=== PATIENT | female | born 1940 | race Caucasian/White ===

== ENCOUNTER 2019-11-03 14:42 | Inpatient (IN) | payer OTHER ==
[~2019-11-03] VITALS: Ht 160 cm; Wt 50.4 kg
[2019-11-03] MEDS ORDERED: SODIUM CHLORIDE 0.9% 1,000 ML IV ONE ×2 (14:58)
[2019-11-03 15:29] LABS: Basophils # (auto) 0 10 ^3/uL (0-0.2); Basophils % (auto) 0.3 % (0.0-2.0); Eosinophils # (auto) 0 10 ^3/uL (0-0.8); Eosinophils % (auto) 0.1 % (0.0-7.0); Hematocrit 34.9 % (36.0-46.0); Hemoglobin 11.1 g/dL (12.2-16.2); Lymphocytes # (auto) 0.6 10 ^3/uL (0.4-5.4); Lymphocytes % (auto) 5.3 % (10.0-50.0); Mean Corpuscular Hgb Conc. 31.8 g/dL (32.0-36.0); Mean Corpuscular Volume 94.5 fL (80.0-100.0); Monocytes # (auto) 0.6 10 ^3/uL (0-1.3); Monocytes % (auto) 5.2 % (0.0-12.0); Neutrophils # (auto) 10.2 10 ^3/uL (1.6-8.6); Neutrophils % (auto) 89.1 % (37.0-80.0); Nucleated Red Blood Cells % 0.1 %; Platelet Count (auto) 208 10^3/uL (140-450); Red Cell Distribution Width 15.8 % (11.8-14.3); White Blood Cell 11.4 10^3/uL (4.4-10.8)
[2019-11-03 15:43] LABS: Albumin 3.2 g/dL (3.4-5.0); Calcium 8.4 mg/dL (8.5-10.1)
[2019-11-03 15:47] LABS: BUN/Creatinine Ratio 21.2; Bilirubin, Total 0.5 mg/dL (0.2-1.0); Total Protein 6.1 g/dL (6.4-8.2)
[2019-11-03] MEDS ORDERED: FUROSEMIDE 20 MG/2 ML VIAL IV ONE (19:30)
[2019-11-03] MEDS ORDERED: MORPHINE SULF INJ 2 MG/ML SYRINGE 1ML IV PRN (19:30)
[2019-11-03] MEDS ORDERED: NITROGLYCERIN 0.4 MG SL TAB SL PRN ×2 (19:30→22:45)
[2019-11-03] MEDS ORDERED: MORPHINE SULF INJ 2 MG/ML SYRINGE 1ML IV ONE (20:15)
[2019-11-03] MEDS ORDERED: LACTATED RINGER'S 1,000 ML IV ONE (20:15)
[2019-11-03] MEDS ORDERED: ONDANSETRON HCL 4 MG/2 ML VIAL IV ONE (20:15)
[2019-11-03] MEDS: SODIUM CHLORIDE 0.9% 1,000 ML IV SCH (20:17)
--- NOTE | 2019-11-03 22:00 | NUR ---
Telemetry admit from ER MITESH SHEPPARD admitted to Telemetry unit after SBAR received. Patient oriented to RAYMOND PONCE RN primary RN, unit, room, bed, and unit policies regarding patient care and visiting hours. Patient is CADDO. Patient now on continuous telemetry monitoring, tele box # [id number] and telemetry reading on arrival to unit is SR 70-80S. Patient placed on bedside oxygen, weighed by bedscale and encouraged to call if they need something. All questions and concerns addressed, patient verbalized understanding. Note:
[2019-11-03 22:03] VITALS: BP 127/63
[2019-11-03] MEDS ORDERED: ONDANSETRON HCL 4 MG/2 ML VIAL IV PRN (22:45)
[2019-11-03] MEDS ORDERED: ENOXAPARIN SOD 100 MG/1 ML SYRINGE SC ONE (22:45)
[2019-11-03] MEDS ORDERED: LORazepam 0.5 MG TAB PO PRN (22:45)
[2019-11-03] MEDS ORDERED: ALUM & MAG HYDROX-SIMETH LIQ(MAALOX) 30 ML PO ONE (22:45)
[2019-11-03] MEDS: cefTRIAXone 1GM/50ML D5W 50 ML IV SCH (23:33)
[2019-11-04] VITALS (7 sets, daily range): BP systolic 100–120; BP diastolic 48–68
[2019-11-04] MEDS: AZITHROMYCIN 500MG/ 250ML 250 ML IV SCH ×2 (01:18→10:13)
[2019-11-04] MEDS ORDERED: OMEP20TA PO (01:28)
[2019-11-04] MEDS ORDERED: BENA10TA9 PO (01:28)
[2019-11-04] MEDS ORDERED: ATOR20TA50 PO (01:28)
[2019-11-04] MEDS ORDERED: DONETAB6 PO (01:28)
--- NOTE | 2019-11-04 02:30 | NUR ---
ELEVATED TROPONIN LEFT MESSAGE WITH CARDIO DR BACH REGARDING PATIENT ELEVATED TROPONIN 1.55 AWAITING CALL BACK
[2019-11-04] MEDS: FUROSEMIDE 20 MG/2 ML VIAL IV SCH ×2 (05:04→23:44)
--- NOTE | 2019-11-04 06:30 | NUR ---
UPDATED FAMILY DAUGHTER IN LAW ARMEN CALLED CONFIRMED [employer]. UPDATED HER ON PATIENT STATUS AND PLAN OF CARE.
--- NOTE | 2019-11-04 07:00 | NUR ---
UA SENT TO LAB
--- NOTE | 2019-11-04 08:00 | NUR ---
ASSESSMENT NOTE PT IS ALERT TO SELF, SITUATION, AND PLACE, CONFUSED ON TIMES, GENERALIS WEAKNESS NOTED, PT IS ABLE TO VERBALIS HER DEMANDS, AND SELF REPOSITION, INCONTINENT ON STOOL AND URINE, KEPT DRY AND CLEAN AT ALL TIMES, FALL RISK PRECAUTIONS, CALL LIGHT WITHIN REACH
[2019-11-04 08:09] LABS: Urine Bacteria NONE SEEN /hpf (None Seen); Urine Blood TRACE /uL (Negative); Urine Mucus FEW (None Seen); Urine WBC 179 /hpf (0 - 5)
[2019-11-04] MEDS: cefTRIAXone 1GM/50ML D5W 50 ML IV SCH (08:33)
[2019-11-04] MEDS: SODIUM CHLORIDE 0.9% 1,000 ML IV SCH ×3 (08:50→23:06)
[2019-11-04] MEDS ORDERED: LISINOPRIL 20 MG TAB PO SCH (10:00)
[2019-11-04] MEDS ORDERED: ASPirin 81 mg TAB PO SCH (10:00)
[2019-11-04] MEDS ORDERED: CLOPIDOGREL BISULFATE 75 MG TAB PO SCH (10:00)
[2019-11-04] MEDS: FAMOTIDINE (10MG/ML) 2ML VL IV SCH ×2 (10:12→23:15)
[2019-11-04] MEDS: DOCUSATE SOD 100 MG CAP PO SCH (10:13)
[2019-11-04] MEDS: METOPROLOL TARTRATE 25 MG TAB PO SCH ×2 (10:14→22:00)
[2019-11-04 10:28] LABS: Hematocrit 34.4 % (36.0-46.0); Hemoglobin 11.1 g/dL (12.2-16.2); Mean Corpuscular Hemoglobin 30.5 pg (28.0-32.0); Mean Corpuscular Hgb Conc. 32.4 g/dL (32.0-36.0); Platelet Count (auto) 171 10^3/uL (140-450); Red Blood Cells 3.66 10^6/uL (4.0-5.20); Red Cell Distribution Width 15.7 % (11.8-14.3); White Blood Cell 13.2 10^3/uL (4.4-10.8)
[2019-11-04 10:38] LABS: Basophils % (manual) 0 (0.0-2.0); Blast Cells 0; Eosinophils % (manual) 0 (0-7); Promyelocytes % 0; Reactive Lymphocytes 0
[2019-11-04 10:41] LABS: INR 1.19 (0.9-1.15); Partial Thromboplastin Time 50.3 sec (23.64-32.05)
[2019-11-04 10:57] LABS: Calcium 8.4 mg/dL (8.5-10.1); Magnesium 2.2 mg/dL (1.6-2.6); Potassium 4.7 mmol/L (3.5-5.1)
[2019-11-04 11:00] LABS: Band Neutrophils % (manual) 7; Lymphocytes % (manual) 8 (10.0-50.0); Metamyelocytes % 2; Monocytes % (manual) 8 (0-12); Myelocytes % 1
[2019-11-04 11:03] LABS: BUN/Creatinine Ratio 17.5; Bilirubin, Total 0.5 mg/dL (0.2-1.0); Phosphorus 3.8 mg/dL (2.5-4.90); Total Protein 6.5 g/dL (6.4-8.2)
--- NOTE | 2019-11-04 12:00 | NUR ---
BM PT HAS LARGE LOOSE TO FORM , KEPT DRY AND CLEAN
--- NOTE | 2019-11-04 12:36 | NUR ---
BLOOD PRESSURE DROPPED AFTER PT HAS HER BM TO 68/45, THEN WENT UP TO 96/45, PT STATED I DON'T FEEL GOOD>, PAGE DR LARSEN, A BRIEF MESSAGE LEFT ON THE ANSWER MACHINE
--- NOTE | 2019-11-04 12:52 | NUR ---
NEW ORDERS NOTED FROM DR HARRIS, PAGE DR HARRIS TO GIVE HIM PATIENT LATEST UPDATE
--- NOTE | 2019-11-04 13:00 | NUR ---
DR HARRIS AT BED SIDE FOLLOWING UP ON PT, AWARE THAT THE CARDIOLOGY CONSULT WILL BE WITH DR BACH
--- NOTE | 2019-11-04 15:30 | NUR ---
PT TRANSFEREE TO ROOM 220B
--- NOTE | 2019-11-04 16:45 | NUR ---
IV insertion IV access obtained, via clean sterile technique by inserting 14 gauge catheter at after attempt(s). IV secured properly. No trauma to site. Patient tolerated procedure well.
[2019-11-04 16:50] LABS: Protein, Urine 128.1 mg/dL (0.0-11.9)
--- NOTE | 2019-11-04 17:10 | NUR ---
URINE SAMPLE FOR : URINE PROTEIN, SODIUM, CREATININE, AND URINE CULTURE SENT TO LAB
--- NOTE | 2019-11-04 18:36 | NUR ---
PT CONTINUE STABLE, SLEEPING, NO DISTRESS NOTED, CONTINUE MONITORING
--- NOTE | 2019-11-04 18:42 | NUR ---
CALLED IN CARDIOLOGY CONSULT AGAIN, SPOKE WITH KYLIE IN PPX, TRANSFER ME TO [facility] WITH PT DIAGNOSIS ALONG WITH THE CRITICAL LAB
--- NOTE | 2019-11-04 18:48 | NUR ---
PT IS RESTING IN BED COMFORTABLY, NO DISTRESS NOTED
--- NOTE | 2019-11-04 19:30 | NUR ---
Opening Shift Note Assumed care of patient, awake and alert. No S/S of distress/SOB or pain. Instructed on POC and to call for assist PRN, bed alarm on, will continue to monitor for changes Q1hr and PRN. patient has donnelly patent and intact draining light mo urine to gravity. patient resting in bed comfortably in bed in no apparent cardaic or pulmonary distress or SOB.
--- NOTE | 2019-11-04 20:12 | NUR ---
DR ISREAL BACH CALLED THIS EVENING WAS UPDATED REGARDING PATIENT STATUS. RECEIVED ORDER TO TRANSFER PATIENT TO HIGHER LEVEL OF CARE: [facility] [place]. PAGED ONCALL DR BOCANEGRA FOR CHOICE UNDER DR HARRIS LEFT MESSAGE AWAITING CALL BACK.
[2019-11-04] MEDS ORDERED: ACETAMINOPHEN 500 MG TAB PO ONE (20:30)
--- NOTE | 2019-11-04 20:30 | NUR ---
PLACED PATIENT ON BP MONITORING DEVICE TO BE CLOSELY MONITORED PER CHARGE NURSE
--- NOTE | 2019-11-04 20:47 | NUR ---
DR STEVEN HARRIS CALLED FOR UPDATE. INFORMED HIM THAT I CONTACTED DR BACH AND DR BOCANEGRA RECEIVED ORDERS TO TRANSFER PATIENT HIGHER LEVEL OF CARE TO [facility]. UPGRADE PATIENT TO [place] STATUS UNTIL PATIENT IS BEING TRANSFERRED, ADMINISTER 2 UNITS PRBC TO PATIENT, HOLD ALL ANTICOAGULANTS. DR HARRIS STATES PATIENT NEEDS TO BE TRANSFERRED [id number] AND WILL CONTACT DINING CAR CONDUCTOR TO ARRANGE. AWAITING CALL FROM CHOICE DINING CAR CONDUCTOR.
--- NOTE | 2019-11-04 21:03 | NUR ---
TRANSFER AUTHORIZATION TARSHA RICH CM CALLED [facility] ON WILL CALL AUTHORIZATION #[id number] [facility] LEVEL OF CARE AUTHORIZATION #[id number]
--- NOTE | 2019-11-04 21:12 | NUR ---
FAXED TRANSFER PACKET TO [facility] [phone]
[2019-11-04 21:49] LABS: Basophils # (auto) 0 10 ^3/uL (0-0.2); Basophils % (auto) 0.1 % (0.0-2.0); Eosinophils # (auto) 0 10 ^3/uL (0-0.8); Hematocrit 32.3 % (36.0-46.0); Hemoglobin 10.5 g/dL (12.2-16.2); Lymphocytes # (auto) 0.7 10 ^3/uL (0.4-5.4); Lymphocytes % (auto) 5.8 % (10.0-50.0); Mean Corpuscular Hemoglobin 30.7 pg (28.0-32.0); Mean Corpuscular Hgb Conc. 32.6 g/dL (32.0-36.0); Monocytes # (auto) 0.9 10 ^3/uL (0-1.3); Monocytes % (auto) 7.1 % (0.0-12.0); Neutrophils # (auto) 10.5 10 ^3/uL (1.6-8.6); Platelet Count (auto) 155 10^3/uL (140-450); Red Blood Cells 3.44 10^6/uL (4.0-5.20); Red Cell Distribution Width 15.8 % (11.8-14.3); White Blood Cell 12.1 10^3/uL (4.4-10.8)
--- NOTE | 2019-11-04 21:50 | NUR ---
TARSHA ESCOBAR FROM [facility] CALLED BACK INFORMED SHE FAXED REQUEST FOR TRANSFER TO [facility]IT[facility] FOLLOWS: [facility], TRANSFER CENTER [phone] [facility] [phone] [facility] [phone] [facility], TRANSFER CENTER [phone] [facility], [facility],
[2019-11-04] MEDS ORDERED: DONEPEZIL HYDROCHLORIDE 5 MG TAB PO SCH (22:00)
[2019-11-04] MEDS ORDERED: ENOXAPARIN SOD 100 MG/1 ML SYRINGE SC SCH (22:00)
[2019-11-04] MEDS ORDERED: ATORVASTATIN 20 MG TAB PO SCH (22:00)
--- NOTE | 2019-11-04 22:15 | NUR ---
GAVE REPORT TO NURSE BRAGA TO RESUME CARE OF PATIENT CHAVA STATUS.
--- NOTE | 2019-11-04 22:30 | NUR ---
ASSUMED CARE OF PATIENT. PATIENT IS AWAKE, ALERT AND ORIENTED TO SELF AND PLACE, FORGETFUL, FALL PRECAUTIONS IN PLACE, BED ALARM ON. PATIENT IS RECEIVING IV FLUID, NS AT 100ML/HR, LATEST BP - 120/50 HR-68.
--- NOTE | 2019-11-04 23:00 | NUR ---
SPOKE TO PRUDENCE OF [place], TRANSFER REQUEST IS ACCEPTED AND PROVIDED PATIENT'S DOCTORS NAME. PER DOROF WILL CALL BACK FOR UPDATES REGARDING TRANSFER.
--- NOTE | 2019-11-04 23:54 | NUR ---
SPOKE TO STEPHANIE WALLACE OF [place], CALL BACK #[phone]. UPDATED REGARDING PATIENT'S VITAL SIGNS AND STATUS. PER STEPHANIE, HE NEEDS TO GET HOLD OF DR. BACH TO FIND OUT IF PATIENT NEEDS EMERGENT SURGICAL INTERVENTION FOR THE AORTIC DISSECTION. WILL CALL BACK.
[2019-11-05] VITALS (15 sets, daily range): BP systolic 89–115; BP diastolic 43–78
--- NOTE | 2019-11-05 00:23 | NUR ---
BLOOD TRANSFUSION 1ST UNIT OF BLOOD TRANSFUSION STARTED AT 0008, NO TRANSFUSION REACTIONS NOTED. WILL KEEP MONITORING.
--- NOTE | 2019-11-05 00:52 | NUR ---
SPOKE TO DANIELE WALLACE OF [place], ACCORDING TO HIM AFTER SPEAKING WITH THE DOCTOR, THERE IS NO EMERGENT NEED FOR TRANSFER. HE SAID THAT PATIENT NEEDS TO BE TESTED FOR COVID AND RESULT NEEDED BEFORE TRANSFER. PAGED REHABILITATION THERAPIST MD FOR DR. HARRIS. WAITING FOR CALL BACK.
--- NOTE | 2019-11-05 01:21 | NUR ---
GIUSEPPE SPOKE WITH SHAGUFTA FROM [facility] SHE RECEIVED INFORMATION REGARDING PATIENT TRANSFER CLARIFIED TO HER PATIENT NEEDS TO BE TRANSFERRED TO HIGHER LEVEL OF CARE. SHE WILL FORWARD PATIENT INFORMATION TO THEIR SET ILLUSTRATOR.
--- NOTE | 2019-11-05 01:26 | NUR ---
PER ELECTRICAL MECHANICAL TECHNICIAN, LAB STARTS PROCESSING COVID TEST AT 0800 AND RESULT COMES BACK AT 1100.
--- NOTE | 2019-11-05 02:00 | NUR ---
SPOKE TO STEPHANIE WALLACE OF [place], FAX NO. PROVIDED. HE SAID THAT HE WILL FAX NEEDED FORMS TO BE SIGNED. PER STEPHANIE, COVID TEST RESULT NEEDS TO BE FAXED TO [place] PRIOR TRANSFER.
--- NOTE | 2019-11-05 04:13 | NUR ---
2ND UNIT OF BLOOD TRANSFUSION STARTED AT 0341, VITAL SIGNS ARE STABLE, NO S/SX OF TRANSFUSION REACTIONS. WILL KEEP MONITORING.
--- NOTE | 2019-11-05 04:55 | NUR ---
PATIENT HAD 2 BLACK TARRY STOOL, RECEIVING 2ND UNIT OF BLOOD, DENIES ANY NAUSEA AND ABDOMINAL PAIN, NO VOMITING. WILL KEEP MONITORING.
--- NOTE | 2019-11-05 05:36 | NUR ---
SPOKE TO CYNTHIA (PT'S DAUGHTER IN LAW), UPDATED REGARDING PATIENT'S STATUS AND TRANSFER. WILL ENDORSE TO MORNING NURSE TO NOTIFY HER WHAT UNIT IN [place] THE PATIENT IS GOING.
[2019-11-05] MEDS: FUROSEMIDE 20 MG/2 ML VIAL IV SCH (06:00)
--- NOTE | 2019-11-05 06:04 | NUR ---
SPOKE TO DR. BOCANEGRA, NOTIFIED HIM OF THE NEED FOR COVID SWAB, PATIENT'S LATEST BP OF 89/53, PT HAVING 2 BLACK TARRY STOOLS AND LOW URINE OUTPUT OF 100ML FROM THE ALMEIDA CATHETER. NEW ORDERS FOR NPO, PROTONIX IV TO START FIRST DOSE NOW, COVID SWAB AND CONTINUE WITH IV FLUID AFTER BLOOD TRANSFUSION.
[2019-11-05] MEDS: PANTOPRAZOLE 40 MG/10 ML VIAL INJ IV SCH ×2 (06:17→09:18)
--- NOTE | 2019-11-05 07:22 | NUR ---
CALLED DR HARRIS, LEFT A MESSAGE REGARDING PT'S AFIB RHYTHM, EKG DONE, BP IS 109/58, HR-63.
--- NOTE | 2019-11-05 07:23 | NUR ---
IV insertion IV access obtained, via clean sterile technique by inserting #22 gauge catheter at RIGHT AC after 1 attempt(s). IV secured properly. No trauma to site. Patient tolerated well. NOTE:
--- NOTE | 2019-11-05 07:25 | NUR ---
COVID SWAB SENT.
--- NOTE | 2019-11-05 07:30 | NUR ---
Opening Shift Note Assumed care of patient, awake and alert. No S/S of distress/SOB or pain. Instructed on POC and to call for assist PRN, will continue to monitor for changes Q1hr and PRN. Patient is pleasantly confused, forgetful. She is able to state that she is in the hospital. Bed alarm on.
[2019-11-05] MEDS: cefTRIAXone 1GM/50ML D5W 50 ML IV SCH (09:18)
[2019-11-05] MEDS: FAMOTIDINE (10MG/ML) 2ML VL IV SCH (09:18)
[2019-11-05] MEDS: DOCUSATE SOD 100 MG CAP PO SCH (09:18)
[2019-11-05] MEDS: METOPROLOL TARTRATE 25 MG TAB PO SCH (09:20)
--- NOTE | 2019-11-05 10:20 | NUR ---
Spoke with Tawanda at [facility] transfer center: [phone]. She states she needs Covid test results faxed to [phone]. Tawanda states she may have a bed later today.
--- NOTE | 2019-11-05 10:29 | NUR ---
Spoke with Juan at [facility]: [phone]. Requests Covid test results be faxed to [phone]. Juan states he will follow up from there.
--- NOTE | 2019-11-05 10:39 | NUR ---
Patient had tarry stool. Will continue to monitor.
--- NOTE | 2019-11-05 11:37 | NUR ---
Covid test results faxed to [facility] transfer center: [phone]. Receipt of results confirmed. Dr. Matthew hui.
--- NOTE | 2019-11-05 11:47 | NUR ---
Dr. Castro in to see patient. He was updated on transfer information.
--- NOTE | 2019-11-05 14:25 | NUR ---
Received call from Tawanda [facility] Transfer Center. She states Dr. Castro needs to speak with Dr. Corado, accepting doctor at [facility]. Dr. Castro informed and given the Transfer Center phone number: [phone].
--- NOTE | 2019-11-05 15:15 | NUR ---
Received call from Dr. Castro. He states he spoke with the doctor at [facility] and patient has been accepted. Waiting for bed assignment.
--- NOTE | 2019-11-05 16:18 | NUR ---
Patient more confused constantly trying to get out of bed. Charge nurse informed that patient needs a sitter. Bed alarm on. Will continue to monitor.
--- NOTE | 2019-11-05 17:23 | NUR ---
Received call from Rodrick at [facility] transfer center. Patient has been accepted and will go to [address] bed 2. Accepting doctor is Dr. Seth Moulton. [facility] transport arranged for 18:30.
--- NOTE | 2019-11-05 17:25 | NUR ---
Phone number for report: [phone].
--- NOTE | 2019-11-05 17:35 | NUR ---
Report called to [facility] on [address].
--- NOTE | 2019-11-05 17:39 | NUR ---
Patient's son informed of [facility] bed assignment and pickup time.
--- NOTE | 2019-11-05 17:40 | NUR ---
DEPARTMENT EDITOR alerted this RN to come check patient. Patient foaming at the mouth and is non responsive. No carotid or femoral pulse. Code [employer] called.
--- NOTE | 2019-11-05 18:01 | NUR ---
Code stopped by Dr. Vaughan. Patient pronounced.
--- NOTE | 2019-11-05 18:15 | NUR ---
Dr. Castro informed that patient coded and was pronounced at 18:01.
--- NOTE | 2019-11-05 18:27 | NUR ---
Family at bedside.
--- NOTE | 2019-11-05 18:40 | NUR ---
Assistant Chief Nursing Officer called: [phone]. reported, waiting for return call.
--- NOTE | 2019-11-05 18:52 | NUR ---
[facility] informed of . ID [id number].
--- NOTE | 2019-11-05 19:02 | NUR ---
Spoke with Justo Sánchez from the superintendent distribution's office. He was given pertinent information and states the patient is not a superintendent distribution's case.
--- NOTE | 2019-11-05 19:04 | NUR ---
Mortuary per family: Coy Castrejon, [place].
--- NOTE | 2019-11-05 19:46 | NUR ---
SPOKE TO [facility], PATIENT IS NOT A CANDIDATE FOR TISSUE DONATION.
--- NOTE | 2019-11-05 19:58 | NUR ---
CALLED [facility], SPOKE TO EDWIN AND LET HER KNOW THAT PT .
--- NOTE | 2019-11-05 21:01 | NUR ---
POST MORTEM CARE DONE.
--- NOTE | 2019-11-05 21:03 | NUR ---
[facility] INFORMATION PROVIDED REGARDING PATIENT. WILL CALL BACK FOR ETA OF CAMPAIGN CONSULTANT.
--- NOTE | 2019-11-05 21:08 | NUR ---
SPOKE TO QIANA OF [facility] M[facility]SPORTATION, PER QIANA, BODY WILL BE PICKED UP IN THE MORNING SINCE MORTUARY IS CLOSED AND PAPER WORKS ARE NOT READY AT THIS TIME. NOTIFIED FLUX PLANT OPERATOR.
--- NOTE | 2019-11-05 21:14 | NUR ---
SPOKE TO CYNTHIA AND LET HER KNOW THAT PT'S BODY WILL BE PICKED UP IN THE MORNING.
--- NOTE | 2019-11-07 16:08 | NUR ---
saturation diver 11/04/2019 Per consult transfer to higher level of care. No call or page on this patient. Patient prior to being transferred. Addendum: 11/07/19 at 1609 by Maria M Lim Amended: Links added.
== END 2019-11-05 22:45 | disposition expired ==
LOC: ER 14:42 → EDBD 14:42 → TELE 14:43 → TELE-EAST 21:34 → TELE-CENTR 11-04 16:31
PROVIDERS: ADMIT Hospitalist; ATTEND Internal Medicine
PROC: 30233N1 Transfusion of Nonautologous Red Blood Cells into Peripheral Vein, Percutaneous Approach (ICD-10-PCS; principal; 2019-11-05)
DX: I71.00 Dissection of unspecified site of aorta (principal); I21.4 Non-ST elevation (NSTEMI) myocardial infarction; J18.9 Pneumonia, unspecified organism; J81.0 Acute pulmonary edema; I50.21 Acute systolic (congestive) heart failure; I25.42 Coronary artery dissection; N17.0 Acute kidney failure with tubular necrosis; I31.2 Hemopericardium, not elsewhere classified; E44.0 Moderate protein-calorie malnutrition; I31.3 Pericardial effusion (noninflammatory); Z68.1 Body mass index [BMI] 19.9 or less, adult; I13.0 Hypertensive heart and chronic kidney disease with heart failure and stage 1 through stage 4 chronic kidney disease, or unspecified chronic kidney disease; D72.829 Elevated white blood cell count, unspecified; N18.3 Chronic kidney disease, stage 3 (moderate); D64.9 Anemia, unspecified; E78.5 Hyperlipidemia, unspecified; F02.80 Dementia in other diseases classified elsewhere, unspecified severity, without behavioral disturbance, psychotic disturbance, mood disturbance, and anxiety; G30.9 Alzheimer's disease, unspecified; I95.9 Hypotension, unspecified; I46.9 Cardiac arrest, cause unspecified; I25.10 Atherosclerotic heart disease of native coronary artery without angina pectoris; I71.2 Thoracic aortic aneurysm, without rupture; Z03.818 Encounter for observation for suspected exposure to other biological agents ruled out; Z88.5 Allergy status to narcotic agent
CPT/HCPCS: 36415; 70450; 71045; 74176; 80053; 81001; 82306; 82570; 83036; 83735; 83880; 83970; 84100; 84156; 84300; 84484; 85007; 85025; 85027; 85610; 85730; 86850; 86900; 86901; 86920; 87086; 93005; 93306; 96361; 96374; 96375; 99291; C9113; G0378; J0696; J2405; J3490